=== PATIENT | male | born 1995 | race Caucasian/White ===

== ENCOUNTER 2016-08-05 17:17 | Emergency (ER) | payer BC ==
[~2016-08-05] VITALS: Ht 175.3 cm; Wt 72.6 kg
[~2016-08-05 17:17] MED LIST: BENZOYL PEROXIDE TP; CLINDAMYCIN TP; DIFFERIN0.3% TP; LORTAB 5/500 501 TAB PO; TAMIFLU 75MG CA75 MG PO
--- OUTSIDE RECORDS SUMMARY | 2016-08-05 17:21 | External Medical Summary Rpt ---
Author Author , Organization [employer] Address Unknown Phone Unavailable Purpose Continuity of Care Document - through 2016
--- OUTSIDE RECORDS SUMMARY | 2016-08-05 17:21 | External Medical Summary Rpt ---
Author Author , Organization [employer] Address Unknown Phone Unavailable Purpose Continuity of Care Document - 09-28-1997 through 2016 Immunization Name Date Route CVX Reacti Commen Provid Is Given on t er Refuse d Td Histor H149 No (adult 2004 ical ), Inform adsorb ation ed - Source Unspec ified Polio- Histor H149 No OPV 1997 ical Inform ation - Source Unspec ified DTaP, Histor H149 No UF 1997 ical Inform ation - Source Unspec ified MMR Histor H149 No 1997 ical Inform ation - Source Unspec ified
--- OUTSIDE RECORDS SUMMARY | 2016-08-05 17:21 | External Medical Summary Rpt ---
Author Author , Organization [employer] Address Unknown Phone Unavailable Care Team Providers Care Community Development Manager Name Role Phone SOFIE ELLIOTT MD, Unavailable Unavailable SOFIE ELLIOTT MD Purpose Continuity of Care Document - 10-26-2012 through 2016 Problems Code Diagnosis DOS Provider Status 813.05 813.05 FX 10-26-2012 [facility] E[facility]8 OTH 10-26-2012 [place] [facility] E849.0 E849.0 10-26-2012 [place] ACCIDENT IN [facility] Allergies, Adverse Reactions, Alerts Type Drug Allergy Adverse Reaction to Substance Substance Reaction Severity Penicillin Unknown Unknown Vital Signs 10-26-2012 17:45 Name Value Interpretat Reference Comment ion Range Body 99.4 [degF] Temperature BP 68 mm[Hg] Diastolic BP Systolic 121 mm[Hg] Heart 79 /min Rate/Pulse O2% 98 % Respiratory 20 /min Rate 10-26-2012 17:43 Name Value Interpretat Reference Comment ion Range BP 67 mm[Hg] Diastolic BP Systolic 123 mm[Hg] Heart 79 /min Rate/Pulse O2% 99 % Respiratory 18 /min Rate Procedures Procedure DOS Code Location Performer Comment APPLICATI 93.54 SOFIE ON OF [facility]IGHTOWER MD Encounters Encounter Start End Date Code Location Performer Type Date Emergency LOLA ELLIOTT (ER) 3 17:10 3 17:49 [facility] SOFIE
--- OUTSIDE RECORDS SUMMARY | 2016-08-05 17:21 | External Medical Summary Rpt ---
Author Author , Organization [employer] Address Unknown Phone Unavailable Care Team Providers Care Mechanic/Welder Name Role Phone SOFIE ELLIOTT MD, Unavailable Unavailable SOFIE ELLIOTT MD Purpose Continuity of Care Document - 10-26-2012 through 2016 Problems Code Diagnosis DOS Provider Status 813.05 813.05 FX 10-26-2012 [facility] E[facility]21.8 OTH 10-26-2012 [place] [facility] E849.0 E849.0 10-26-2012 [place] ACCIDENT IN [facility] Allergies, Adverse Reactions, Alerts Type Drug Allergy [...] LOLA ELLIOTT (ER) 3 17:10 3 17:49 [facility] SOFIE
--- OUTSIDE RECORDS SUMMARY | 2016-08-05 17:22 | External Medical Summary Rpt ---
Author Author [employer] Gambino, [employer] Organization [employer] Address Unknown Phone Unavailable
[2016-08-05 17:40] LABS: HEMOGLOBIN 16.4 g/dL (14.1-18.0); LYMPH # 1.6 K/mm3 (0.7-4.5); LYMPH % 22.5 % (10-50)
--- NOTE | 2016-08-05 17:52 | Urgent Treatment Center Report ---
History of Present Issue Date/Time Seen by Provider 08/05/16 0278 Visit Reason Pt arrived:Walked Presenting Problem:PT C/O BRUISE ON UNDERNEATH OF RIGHT FOREARM THAT HAS BEEN PRESENT X2 DAYS BUT TODAY HAS DEVELOPED A WHITE KNOT IN THE CENTER OF IT ALONG WITH PAIN THAT EXTENDS FROM BRUISE, UP HIS ARM THROUGH HIS BICEP. PT DENIES ANY KNOWN INJURY Location if Accident: Onset of symptoms date/time:/ or onset unknown for:MEDICAL HX UNKNOWN Have you (or family members/close friends) recently traveled outside the [place]? N If Yes, where/when: Have you had exposure to infectious disease within the past month? TB? Other? Specify: Source patient Exam Limitations no limitations Comment 21-year-old male presents for bruise to the RIGHT forearm for 2 days no injury noted. Patient states today he noticed there is a light not in the middle of the bruise. Patient denies insect bites or tick bites patient states has been working in [employer] Coded Allergies: Penicillins (Mild, 05/26/16) Home Medications Active Scripts Oseltamivir Phosphate (Tamiflu 75MG Capsule) 75 MG PO BID #10 CAP Prov: 05/26/16 Reported Medications Adapalene (Differin) 1 MILY TP QHS #45 30 Days [BENZACLIN GEL 50G PU] 1 MILY TP QAM #50 30 Days History Medical History General CAD? No Angina: No [place]: No Hypertension? No Hyperlipidemia? No CHF? No DVT? No PE? No COPD? No Asthma? No Anemia? No GERD? No Gastric ulcers? No GI Bleed? No Hernia? No Thyroid Problems? No Hypothyroidism? No CVA? No Seizures? No Diabetes? No Renal Insuffiency? No UTI? No Stones? No BPH? No GB Disease: No Nephritic Syndrome? No Asplenia? No Hepatitis? No Sickle Cell Disease? No Arthritis? No Migraines? No Cataracts? No Glaucoma? No MRSA? No HIV? No TB? No Anxiety? No Depression? No Cancer? No More? No Immunization HX DT/Tetanus 1-4 YRS Flu NEVER Pneumonia NEVER Surgical Hx Previous Surgery?Y EAR TUBES CLAVICLE FX-PINS & SCREWS Family History Family HX Diabetes No CAD No Hypertension Yes Hyperlipidemia Yes Cancer Yes TB No Social History Alcohol Alcohol: No Review of Systems All Other Systems Reviewed and Negative Skin see HPI Physical Exam Vital Signs Vital Signs Date Time Temp Pulse Resp B/P Pulse O2 O2 Flow FiO2 Ox Delivery Rate 08/05 1723 99.2 100 14 130/62 100 - WBC >12,000 or <4,000 or 10% bands? 2 or more SIRS Criteria Met? B/P:130/62 MAP:84 Creatinine >2.0? UA output<0.5ml/kg/hr for 2 hrs? Platelet count >100,000? Lactate >2.0mmol/1? INR >1.2 or PTT > than 60 sec? Evidence of Organ Dysfunction? Provider documented clinical suspician of infection? Sepsis Criteria Count: 1 Sepsis Risk: General Appearance normal appearance, no apparent distress Respiratory Status Yes: trachea midline, chest symmetrical, non tender chest. No: respiratory distress. Lung Sounds bilateral: normal breath sounds, lungs clear. Cardiovascular normal exam, regular rate/rhythm, no peripheral edema, normal peripheral pulses Extremities non-tender, normal range of motion, normal inspection, small golf ball sized old bruise to RIGHT forearm. Small pea-sized palpable movable nodule palpated in bruise and to the side of bruise, . note patient had another one on his upper arm. Neurologic alert, normal exam, oriented x 3 Medical Decision Making LABS/Meds/Orders Pt receiving controlled substance in ED? No Results/Orders Laboratory Tests 08/05/16 1730: PT 11.0, INR 1.03, APTT 27.4, WBC 7.3, RBC 5.61, Hgb 16.4, Hct 50.2, MCV 89.3, RDW 12.9, Plt Count 248, MPV 5.9 L, Gran % 68.4, Gran # 5.0, Lymphocytes % 22.5 , Monocytes % 7.4, Eosinophils % 1.2, Basophils % 0.4, Lymphocytes # 1.6, Monocytes # 0.5, Eosinophils # 0.1, Basophils # 0.0, PUBS MCHC 32.6, MCH 29.2 Orders Procedure Date/time Status PARTIAL THROMBOPLASTIN TIME 08/06 1723 Complete PROTHROMBIN TIME 08/05 172 Complete CBC WITH AUTO DIFF 08/06 1723 Complete Departure Departure Time of Disposition 175 Disposition DC Home or Self Care(routine) Clinical Impression Primary Impression: Lipoma of arm Qualifiers: Laterality: right Qualified Code: D17.21 - Benign lipomatous neoplasm of skin and subcutaneous tissue of right arm Condition STABLE Referrals Justin Batres MD (Family): [facility] Patient Instructions Lipoma Additional Instructions Follow-up with PCP this week return if symptoms do not improve or become worse Discharge Counseling Counseled pt/family regarding diagnosis, test results, medications/RX, home care, follow up needs at [phone]
[2016-08-05 18:01] VITALS: BP 130/62
== END 2016-08-05 18:01 | disposition home or self-care (01) ==
LOC: UTC 17:17
PROVIDERS: Nurse Practitioner Family
DX: D17.21 Benign lipomatous neoplasm of skin and subcutaneous tissue of right arm (principal)